=== PATIENT | female | born 1955 | race Hispanic/Latino ===

== ENCOUNTER 2017-12-27 10:12 | Outpatient (CLI) | payer OTHER | END 2017-12-27 10:13 | disposition home or self-care (01) | LOC: BICMAMMO 10:12 | PROVIDERS: ATTEND Clinical Nurse Specialist Medical-Surgical | DX: Z12.31 Encounter for screening mammogram for malignant neoplasm of breast (principal); Z80.3 Family history of malignant neoplasm of breast | CPT/HCPCS: 77063; 77067 ==

== ENCOUNTER 2021-02-14 15:30 | Emergency (ER) | payer OTHER | END 2021-02-14 16:19 | disposition home or self-care (01) | LOC: ERS 15:30 | DX: J00 Acute nasopharyngitis [common cold] (principal) | CPT/HCPCS: 99283 ==

== ENCOUNTER 2021-02-14 16:29 | Outpatient (CLI) | payer OTHER | END 2021-02-14 16:30 | disposition home or self-care (01) | LOC: BICCT 16:29 | PROVIDERS: ATTEND Otolaryngology Plastic Surgery within the Head & Neck | DX: J34.2 Deviated nasal septum (principal); J34.1 Cyst and mucocele of nose and nasal sinus ==